=== PATIENT | male | born 1955 | race Caucasian/White ===

== ENCOUNTER 2017-07-25 19:36 | Emergency (ER) | payer OTHER | END 2017-07-25 21:22 | disposition left against medical advice (07) | LOC: ED 19:36 | DX: Z53.9 Procedure and treatment not carried out, unspecified reason (principal) ==

== ENCOUNTER 2018-01-10 10:34 | Emergency (ER) | payer MEDICARE, OTHER ==
[2018-01-10] MEDS ORDERED: PROTONIX 40 MG IV IV ONE (10:43)
[2018-01-10] MEDS ORDERED: Sodium Chloride 0.9% 1000 ML 1,000 ML IV STA (10:43)
[2018-01-10] MEDS ORDERED: Zofran 4 MG/2 ML VIAL IV ONE (10:43)
[2018-01-10 10:45] VITALS: BP 79/39; PULSE 62; O2SAT 98
[2018-01-10] MEDS ORDERED: SANDOSTATIN 50MCG/ML IV ONE (10:45)
--- NOTE | 2018-01-10 10:54 | ERPHSYRPT ---
- History of Present Illness Time Seen by Provider: 01/10/18 10:48 Source: EMS Exam Limitations: clinical condition Physician History: Pt started vomiting large amount of black liquid this morning. Dr Souza called me, informed about this patient, he has been suffering of chronic liver failure, and Esophageal Varices. He is currently in Hospice care, and DNR. He is covered with black liquid from head to toe, hypotensive, and vaguely responsive, opens his eyes, but not responding. He arrived on 100 % NRB mask, with iv saline running. Timing/Duration: today Severity: severe Modifying Factors: Improves With: nothing Associated Symptoms: vomiting Allergies/Adverse Reactions: No Known Drug Allergies Allergy (Verified 02/28/16 11:22) Home Medications: Furosemide 40 mg [Lasix 40 MG] 40 mg PO DAILY 01/13/16 [History] Spironolactone 25 mg [Aldactone 25 MG] 25 mg PO BID 01/13/16 [History] Ondansetron [Zofran Odt] 8 mg PO Q6-8HPRN PRN 02/28/16 [History] Hx Tetanus, Diphtheria Vaccination/Date Given: No Hx Influenza Vaccination/Date Given: No Hx Pneumococcal Vaccination/Date Given: No - Review of Systems All Other Systems: Unable due to condition - Past Medical History Pertinent Past Medical History: Yes Neurological History: No Pertinent History ENT History: No Pertinent History Cardiac History: No Pertinent History Respiratory History: No Pertinent History Endocrine Medical History: Hypothyroidism, Liver Disease Musculoskeletal History: No Pertinent History GI Medical History: Cirrhosis, Gallbladder Disease, Hemorrhoids History: No Pertinent History Psycho-Social History: Anxiety Male Reproductive Disorders: No Pertinent History - Past Surgical History Past Surgical History: Yes Neuro Surgical History: No Pertinent History Cardiac: No Pertinent History Respiratory: No Pertinent History Gastrointestinal: Cholecystectomy Genitourinary: No Pertinent History Musculoskeletal: No Pertinent History Male Surgical History: No Pertinent History Other Surgical History: lymph nodes removed from axilla, colonscopy, egd - Social History Smoking Status: Never smoker Exposure to second hand smoke: No Alcohol Use: Socially Drug Use: none Patient Lives Alone: No Significant Family History: no pertinent family hx - Nursing Vital Signs Nursing Vital Signs: Initial Vital Signs Temperature 82.4 F 01/10/18 10:41 Pulse Rate 62 01/10/18 10:41 Respiratory Rate 18 01/10/18 10:41 Blood Pressure 79/39 01/10/18 10:41 O2 Sat by Pulse Oximetry 98 01/10/18 10:41 - Physical Exam General Appearance: severe distress, lethargy Eye Exam: PERRL/EOMI, eyes nml inspection Ears, Nose, Throat Exam: other (black liquid in mouth, suctioning in progress) Neck Exam: normal inspection, supple Respiratory Exam: rhonchi (left base) Cardiovascular Exam: tachycardia, edema (1-2 _+ both ankles) Gastrointestinal/Abdomen Exam: soft, distention, No guarding Male Genitalia Exam: normal genitalia Rectal Exam: deferred Back Exam: normal inspection Extremity Exam: pedal edema Neurologic Exam: other (lethargy) Skin Exam: jaundice SpO2 Interpretation: borderline oxygenation SpO2: 98 Oxygen Delivery: Non-rebreather - Course Nursing assessment & vital signs reviewed: Yes Ordered Tests: Active Orders 24 hr Category Date Time Status Carburetor Mechanic STAT Care 01/10/18 10:44 Active Catheter-Dante Odonnell STAT Care 01/10/18 10:43 Active IV Insertion STAT Care 01/10/18 10:43 Active NPO (ED) STAT Care 01/10/18 10:43 Active Oxygen-ED Only NON-REBREATHER 100% Care 01/10/18 10:43 Active CHEST 1 VIEW (PORTABLE) Stat Exams 01/10/18 10:44 Stop Req Medication Summary Discontinued Medications Generic Name Dose Route Start Last Admin Trade Name Freq PRN Reason Stop Dose Admin Dextrose Confirm 01/10/18 10:55 D50w 50 Ml Abboject Administered 01/10/18 10:56 Dose 50 ml IV .STK-MED ONE Dextrose 50 ml 01/10/18 10:57 D50w 50 Ml Abboject IV 01/10/18 10:58 STAT ONE Sodium Chloride 1,000 mls @ 999 mls/hr 01/10/18 10:43 Sodium Chloride 0.9% 1000 Ml IV 01/10/18 11:43 .Q1H1M STA Octreotide Acetate 50 mcg 01/10/18 10:45 Sandostatin 50mcg/Ml IV 01/10/18 10:46 NOW ONE Ondansetron HCl 4 mg 01/10/18 10:43 Zofran 4 Mg/2 Ml Vial IV 01/10/18 10:44 STAT ONE Pantoprazole Sodium 40 mg 01/10/18 10:43 Protonix 40 Mg Iv IV 01/10/18 10:44 STAT ONE - Progress Progress: unchanged Progress Note: 01/10/18 11:46 Patient's blood sugar was 16,. he was given 1 amp D50, did not changes, he remained hypotensive and stopped breathing. His son and his fiancee at the bedside, I informed them about his condition, and the prognosis, the understood , and agreed. His ultrasound technol revealed Asystole, no CPR started, patient has been DNR, family agreed. He was pronounced at 11:08 AM. - Departure Time of Disposition: 11:10 Departure Disposition: Clinical Impression: Gastrointestinal bleeding, upper Liver failure Qualifiers: Liver failure chronicity: unspecified chronicity Hepatic coma status: without hepatic coma Qualified Code(s): K72.90 - Hepatic failure, unspecified without coma Condition: Critical Care Time: Yes Critical Care Time(excluding separately billable procedures): 30-74 minutes Referrals: LEYLA SOUZA MD [Primary Care Provider] -
[2018-01-10] MEDS ORDERED: D50W 50 ml Abboject IV ONE ×2 (10:55→10:57)
== END 2018-01-10 11:08 | disposition expired ==
LOC: ED 10:34
DX: K92.2 Gastrointestinal hemorrhage, unspecified (principal); K72.90 Hepatic failure, unspecified without coma; Z79.899 Other long term (current) drug therapy
CPT/HCPCS: 51702; 92950; 93041; 99284; 99291; J2354